=== PATIENT | female | born 1990 | race Caucasian/White ===

== ENCOUNTER → 2020-12-25 09:48 | Outpatient (BNVA) | payer OTHER, SELFPAY | PROVIDERS: Visit Provider Nurse Practitioner Women's Health | DX: N89.8 Other specified noninflammatory disorders of vagina (principal); N93.0 Postcoital and contact bleeding | CPT/HCPCS: 87070; 87205 ==

== ENCOUNTER → 2021-10-22 09:10 | Outpatient (BNVA) | payer OTHER, SELFPAY | PROVIDERS: Visit Provider Nurse Practitioner Women's Health | DX: Z01.419 Encounter for gynecological examination (general) (routine) without abnormal findings (principal) | CPT/HCPCS: 87624 ==

== ENCOUNTER → 2023-06-09 07:45 | Outpatient (BNVA) | payer OTHER, SELFPAY | PROVIDERS: Visit Provider Nurse Practitioner Women's Health | DX: N93.0 Postcoital and contact bleeding (principal); R93.89 Abnormal findings on diagnostic imaging of other specified body structures | CPT/HCPCS: 76830 ==

== ENCOUNTER → 2023-09-22 11:30 | Outpatient (BNVA) | payer OTHER, SELFPAY | PROVIDERS: Visit Provider Nurse Practitioner Women's Health | DX: Z01.419 Encounter for gynecological examination (general) (routine) without abnormal findings (principal) | CPT/HCPCS: 87624 ==

== ENCOUNTER 2023-10-10 16:01 | Emergency (ER) | payer OTHER, SELFPAY ==
[2023-10-10 16:01] VITALS: BP 117/83; PULSE 90; RESP 16; TEMP 37.1; O2SAT 96; BMI 22.1
--- NOTE | 2023-10-10 16:07 | ED_ITS ---
HPI - Seizure 2 General: Chief Complaint: Seizure Stated Complaint: SEIZURES Time Seen by Provider: 10/10/23 16:01 History of Present Illness: HPI Narrative: 33-year-old female who presents the [facility] room with a new onset of seizure- like activity. She says she had her first episode yesterday while she was up near [place]. She was evaluated in the hospital there. She has had multiple episodes today. EMS says she arched her back and shook all over. She says she does not drink. She does not take benzodiazepines regularly. She says she has had some stress recently. She says she can remember the event. No postictal state. says she can talk while it is happening. She says initially she felt strange feeling in her mouth. In shortly after developed tonic-clonic type activity with stiffening of her back. Review of Systems 2 Narrative: Constitutional symptoms: Negative except as documented in HPI. Skin symptoms: Negative except as documented in HPI. Eye symptoms: Negative except as documented in HPI. ENMT symptoms: Negative except as documented in HPI. Respiratory symptoms: Negative except as documented in HPI. Cardiovascular symptoms: Negative except as documented in HPI. Gastrointestinal symptoms: Negative except as documented in HPI. Genitourinary symptoms: Negative except as documented in HPI. Musculoskeletal symptoms: Negative except as documented in HPI. Neurologic symptoms: Negative except as documented in HPI. Psychiatric symptoms: Negative except as documented in HPI. Endocrine symptoms: Negative except as documented in HPI. PFSH ED 2 PFSH: Medical History (Updated 10/10/23 @ 17:04 by Gabriela Piper MD) No pertinent past medical history neghx: htn,dm,thyroid,dvt/pe PCP: Dr. Pillo Rodriguez Surgical History H/O oral surgery (~2005) Family History Mother Hypertension Diabetes Father Hypertension Family/Other Heart disease Maternal great uncle Denies family history of Colon cancer Ovarian cancer Hyperlipidemia Breast cancer Uterine cancer Thyroid disease Stroke Physical Exam 2 Narrative: EXAM NARRATIVE: General: Alert, no acute distress. Skin: Warm, dry. Head: Normocephalic, atraumatic. Neck: Supple, trachea midline. Eye: Extraocular movements are intact. Ears, nose, mouth and throat: mucosa moist. Cardiovascular: Regular, Normal peripheral perfusion. Respiratory: Lungs are clear to auscultation, respirations are non-labored, breath sounds are equal, Symmetrical chest wall expansion. Gastrointestinal: Soft, Nontender, Non distended, Normal bowel sounds. Musculoskeletal: Normal ROM, no deformity. Neurological: Alert and oriented, No focal neurological deficit observed. Psychiatric: Cooperative, appropriate mood & affect. Course 2 Vital Signs: Vital signs: Vital Signs Temperature 98.7 F 10/10/23 16:01 Pulse Rate 90 10/10/23 16:01 Respiratory Rate 16 10/10/23 16:01 Blood Pressure 117/83 10/10/23 16:01 Pulse Oximetry 96 10/10/23 16:01 Oxygen Delivery Me thod Room Air 10/10/23 16:01 MDM - Seizure MDM Narrative Medical decision making narrative: Medical decision making: Differential diagnosis including but not limited to and based on the above HPI, review of systems and physical exam: Patient with new onset seizures. She had a CT yesterday so likely no large tumor or anything like that. Today we will ordering basic lab work and a lactic acid. Lab Review: Laboratory results were reviewed and interpreted by myself the emergency room physician. Patient does have a lactate of around 4. This indicates she may have had some sort of true seizure activity. Reexamination: Patient remained stable. No further seizure activity while here. They plan on seeing her primary care physician tomorrow. I recommend neurology evaluation. Given her elevated lactate and recurrent seizures I am going to start her on Keppra for now. Neurology can adjust or change or stop this. Lab Data 10/10/23 Unknown 10/10/23 Unknown Labs: Laboratory Results WBC 7.28 10^3/uL (3.29-11.43) 10/10/23 Unknown RBC 5.02 10^6/uL (3.85-5.65) 10/10/23 Unknown Hgb 14.30 g/dL (11.27-16.99) 10/10/23 Unknown Hct 42.3 % (36-47) 10/10/23 Unknown MCV 84.3 fl (85-98) L 10/10/23 Unknown MCH 28.5 pg (27-33) 10/10/23 Unknown MCHC 33.8 g/dL (30-55) 10/10/23 Unknown RDW 13.8 % (12.1-15.1) 10/10/23 Unknown Plt Count 202 10^3/cmm (157-399) 10/10/23 Unknown MPV 12.3 fL (7.4-10.4) H 10/10/23 Unknown Neut % (Auto) 60.0 % 10/10/23 Unknown Lymph % (Auto) 30.6 % 10/10/23 Unknown Harlan % (Auto) 5.5 % 10/10/23 Unknown Eos % (Auto) 2.7 % 10/10/23 Unknown Baso % (Auto) 0.8 % 10/10/23 Unknown Neut # (Auto) 4.36 10^3/uL (1.8-7.7) 10/10/23 Unknown Lymph # (Auto) 2.2 10^3/uL (0.8-4.8) 10/10/23 Unknown Harlan # (Auto) 0.4 10^3/uL (0.2-0.9) 10/10/23 Unknown Eos # (Auto) 0.2 10^3/uL (0.0-0.8) 10/10/23 Unknown Baso # (Auto) 0.1 10^3/uL (0.0-0.1) 10/10/23 Unknown Nucleated RBC % (auto) 0 % 10/10/23 Unknown Nucleated RBCs # 0.0 /100WBC 10/10/23 Unknown Sodium 140 mmol/L (136-145) 10/10/23 Unknown Potassium 4.0 mmol/L (3.5-5.1) 10/10/23 Unknown Chloride 104 mmol/L (98-107) 10/10/23 Unknown Carbon Dioxide 19 mmol/L (22-29) L 10/10/23 Unknown Anion Gap 21.0 (5-19) H 10/10/23 Unknown BUN 6 mg/dL (6-20) 10/10/23 Unknown Creatinine 0.6 mg/dL (0.5-0.9) 10/10/23 Unknown GFR Calculation 113.8 mL/min (90-130) 10/10/23 Unknown Glucose 118 mg/dL (65-115) H 10/10/23 Unknown Calculated Osmolality 289 mOsm/kg (285-295) 10/10/23 Unknown Lactic Acid 4.4 mmol/L (0.5-2.2) H* 10/10/23 Unknown Calcium 9.4 mg/dL (8.5-10.5) 10/10/23 Unknown Total Bilirubin 0.2 mg/dL (0.15-1.2) 10/10/23 Unknown AST 19 U/L (0-32) 10/10/23 Unknown ALT 16 U/L (0-33) 10/10/23 Unknown Alkaline Phosphatase 71 U/L (35-105) 10/10/23 Unknown Total Protein 7.8 g/dL (6.6-8.7) 10/10/23 Unknown Albumin 4.5 g/dL (3.5-5.2) 10/10/23 Unknown Globulin 3.3 g/dL (1.3-4.6) 10/10/23 Unknown Amorphous Sediment Not Reportable 10/10/23 16:47 No radiology studies performed this visit Other Data Other Data: Assessment and plan: Seizure-like activity -IV Keppra in the emergency room. -Discussed at length with her and her that this is atypical for true seizure but given her elevated lactate and the recurrence of her symptoms I am going to place her on Keppra for now until she can be seen by a neurologist and/or her primary care physician provider. She is not in status over the feel she needs sent to another hospital with neurology emergently. There is no neurology on-call for the hospital here today. - Discharged home - Discussed findings and plan with patient. Answered any questions. - All laboratory values were reviewed and interpreted personally by myself, the ER physician - Evaluation and treatment of this problem were appropriate in the emergency setting Discharge Plan Discharge Patient Disposition: Home Clinical Impression: Seizure-like activity Condition: Stable Prescriptions: New Keppra 500 mg tablet 500 mg PO Q12H Qty: 60 0RF No Action multivitamin Tablet 1 tab PO DAILY acetaminophen [Tylenol] 325 mg capsule 325 mg PO QID PRN Discharge Orders: Discharge ED (Routine); Ordered 10/10/23 Ordered By: Gabriela Piper Patient Instructions: Opioid Safety, Pain Management Activity Restrictions/Additional Instructions: No driving until cleared by neurologist or your primary care provider. You have been screened and evaluated and felt safe for discharge. Health conditions do change or evolve sometimes and as such it is important that you follow up with your Primary Doctor to be re checked, 3-5 days is a general good time frame for follow up. You are always welcome to return to the ED for re assessment if your symptoms are worsening or you have new concerns Coding Level of Care Code ED Eligibility Examiner for Jessica Toro
[2023-10-10 16:19] LABS: Basophils # 0.1 10^3/uL (0.0-0.1); Basophils % 0.8 %; Eosinophils # 0.2 10^3/uL (0.0-0.8); Eosinophils % 2.7 %; Hematocrit 42.3 % (36-47); Lymphocytes # 2.2 10^3/uL (0.8-4.8); Lymphocytes % 30.6 %; Mean Corpuscular HGB Conc 33.8 g/dL (30-55); Mean Corpuscular Hemoglobin 28.5 pg (27-33); Mean Corpuscular Volume 84.3 fl (85-98); Mean Platelet Volume 12.3 fL (7.4-10.4); Monocytes # 0.4 10^3/uL (0.2-0.9); Monocytes % 5.5 %; Neutrophils # 4.36 10^3/uL (1.8-7.7); Nucleated Red Blood Cells % 0 %; Platelet Count 202 10^3/cmm (157-399); Red Blood Count 5.02 10^6/uL (3.85-5.65); Red Cell Distribution Width 13.8 % (12.1-15.1); White Blood Count 7.28 10^3/uL (3.29-11.43)
[2023-10-10 16:42] LABS: Alanine Aminotransferase 16 U/L (0-33); Albumin Level 4.5 g/dL (3.5-5.2); Alkaline Phosphatase 71 U/L (35-105); Aspartate Amino Transferase 19 U/L (0-32); Blood Urea Nitrogen 6 mg/dL (6-20); Calcium 9.4 mg/dL (8.5-10.5); Carbon Dioxide 19 mmol/L (22-29); Chloride 104 mmol/L (98-107); Creatinine Clr Calc Pharmacy 116.1597; Globulin 3.3 g/dL (1.3-4.6); Glomerular Filtration Rate 113.8 mL/min (90-130); Glucose 118 mg/dL (65-115); Osmolality Calculated 289 mOsm/kg (285-295); Sodium 140 mmol/L (136-145); Total Bilirubin 0.2 mg/dL (0.15-1.2); Total Protein 7.8 g/dL (6.6-8.7)
[2023-10-10 16:44] LABS: Lactic Sepsis W/Reflex 4.4 mmol/L (0.5-2.2)
[2023-10-10] MEDS: levETIRAcetam 1,000 MG/100 ML PREMIX 400 MG IV (17:09)
[2023-10-10 17:10] LABS: Glucose Urine UA Norm (Normal); Ketones Urine Negative (Negative); Protein Urine Neg (Negative); Specific Gravity, Urine 1.005 (1.005-1.030); Urine Appearance Clear (CLEAR); Urine Color Colorless (Yellow); pH Urine 7 (5-7)
[2023-10-10 17:11] LABS: Add Urine Culture? No; Bacteria Urine TRACE /hpf; Bilirubin Urine Neg (Negative); Blood Urine Neg (Negative); Leukocyte Esterase Urine Negative (Negative); Nitrate Urine Negative (Negative); Urobilinogen Urine Norm (Negative)
[2023-10-10 18:01] VITALS: BP 116/82; PULSE 86; RESP 14; TEMP 37.1; O2SAT 97
--- NOTE | 2023-10-10 18:02 | PC.NURSE ---
pt discharge delayed due to waiting for ride to return.
[2023-10-10 18:03] LABS: Reflex Lactate Order REFLEX LACTIC ORDERD
== END 2023-10-10 18:16 | disposition home or self-care (01) ==
PROVIDERS: Emergency Provider Emergency Medicine
DX: R56.9 Unspecified convulsions (principal)
CPT/HCPCS: 80053; 81001; 83605; 85025; 96374; 99285; J1953

== ENCOUNTER 2023-10-11 14:07 | Observation (INO) | payer OTHER, SELFPAY ==
[2023-10-11 14:12] VITALS: BP 147/82; PULSE 130; RESP 20; TEMP 37; O2SAT 98
--- NOTE | 2023-10-11 14:14 | MRR_ITS ---
PROCEDURE INFORMATION: Exam: MR Head Without Contrast Exam date and time: 10/11/2023 3:57 PM Age: 33 years old Clinical indication: Patient HX: New onset seizures TECHNIQUE: Imaging protocol: Magnetic resonance imaging of the head without contrast. COMPARISON: CT angio headneck* [id number] 10/11/2023 3:21 PM FINDINGS: Brain: No acute infarct. No hemorrhage. No significant white matter disease. Cerebral ventricles: No ventriculomegaly. Bones/joints: Unremarkable. Paranasal sinuses: No acute sinusitis. Mastoid air cells: No mastoid effusion. Orbital cavities: Unremarkable. Soft tissues: Unremarkable. MR/MR head wo con* [id number] IMPRESSION: No acute intracranial findings.
[2023-10-11 14:22] LABS: Basophils # 0.1 10^3/uL (0.0-0.1); Basophils % 0.7 %; Eosinophils # 0.2 10^3/uL (0.0-0.8); Eosinophils % 2.8 %; Hematocrit 44.4 % (36-47); Lymphocytes % 28.5 %; Mean Corpuscular HGB Conc 33.3 g/dL (30-55); Mean Corpuscular Hemoglobin 28.1 pg (27-33); Mean Corpuscular Volume 84.4 fl (85-98); Mean Platelet Volume 11.4 fL (7.4-10.4); Monocytes # 0.4 10^3/uL (0.2-0.9); Monocytes % 5.8 %; Neutrophils # 4.38 10^3/uL (1.8-7.7); Neutrophils % 61.9 %; Nucleated Red Blood Cells % 0 %; Platelet Count 203 10^3/cmm (157-399); Red Blood Count 5.26 10^6/uL (3.85-5.65); Red Cell Distribution Width 13.5 % (12.1-15.1); White Blood Count 7.08 10^3/uL (3.29-11.43)
--- NOTE | 2023-10-11 14:26 | CTR_ITS ---
PROCEDURE INFORMATION: Exam: CT Chest With Contrast; Diagnostic Exam date and time: 10/11/2023 3:27 PM Age: 33 years old Clinical indication: Other: Seizure; Additional info: Abdominal pain, traumatic chest pain TECHNIQUE: Imaging protocol: Diagnostic computed tomography of the chest with contrast. Radiation optimization: All CT scans at this facility use at least one of these dose optimization techniques: automated exposure control; mA and/or kV adjustment per patient size (includes targeted exams where dose is matched to clinical indication); or iterative reconstruction. Contrast material: OMNI 350; Contrast volume: 50 ml; Contrast route: INTRAVENOUS (IV); COMPARISON: CT angio headneck* [id number] 10/11/2023 3:21 PM RADIATION DOSE METRICS: Total DLP (mGy-cm): 616.01 FINDINGS: Lungs: No focal consolidation. Pleural spaces: No pneumothorax or pleural effusion. Heart: No pericardial effusion. Lymph nodes: No enlarged lymph nodes. Vasculature: No aortic aneurysm. Bones/joints: No acute findings Soft tissues: No acute findings. PROCEDURE INFORMATION: Exam: CT Abdomen And Pelvis With Contrast Exam date and time: 10/11/2023 3:27 PM Age: 33 years old Clinical indication: Other: Seizure; Additional info: Abdominal pain, traumatic chest pain TECHNIQUE: Imaging protocol: Computed tomography of the abdomen and pelvis with contrast. Radiation optimization: All CT scans at this facility use at least one of these dose optimization techniques: automated exposure control; mA and/or kV adjustment per patient size (includes targeted exams where dose is matched to clinical indication); or iterative reconstruction. Contrast material: OMNI 350; Contrast volume: 50 ml; Contrast route: INTRAVENOUS (IV); COMPARISON: US transvaginal [id number] 06/09/2023 7:52 AM RADIATION DOSE METRICS: Total DLP (mGy-cm): 616.01 FINDINGS: Liver: No acute findings Gallbladder and bile ducts: No acute findings. Pancreas: No ductal dilation. Spleen: No splenomegaly. Adrenal glands: No mass. Kidneys and ureters: No stones or hydronephrosis. Stomach and bowel: No obstruction. Appendix: No evidence of appendicitis. Intraperitoneal space: No free air. No significant fluid collection. Vasculature: No abdominal aortic aneurysm. Lymph nodes: No enlarged lymph nodes. Urinary bladder: No acute findings. Reproductive: Multiple left-sided ovarian cysts/follicles. Bones/joints: No acute findings. Soft tissues: No acute findings. CT/CT chest abdpel w/*[id number] IMPRESSION: No acute findings. IMPRESSION: No acute findings.
--- NOTE | 2023-10-11 14:27 | CTR_ITS ---
PROCEDURE INFORMATION: Exam: CTA Head Without And With Contrast, Arteriography Exam date and time: 10/11/2023 3:21 PM Age: 33 years old Clinical indication: Numbness and other: Seizure; Additional info: Seizures TECHNIQUE: Imaging protocol: Computed tomographic angiography of the head without and with contrast. Exam focused on the arteries. 3D rendering (Not supervised by radiologist): MIP and/or 3D reconstructed images were created by the technologist. Radiation optimization: All CT scans at this facility use at least one of these dose optimization techniques: automated exposure control; mA and/or kV adjustment per patient size (includes targeted exams where dose is matched to clinical indication); or iterative reconstruction. Contrast material: OMNI 350; Contrast volume: 70 ml; Contrast route: INTRAVENOUS (IV); COMPARISON: No relevant prior studies available. RADIATION DOSE METRICS: Total DLP (mGy-cm): 945.26 FINDINGS: ANTERIOR CIRCULATION: Right internal carotid artery: There is a subtle focal peripheral hypodensity in the proximal cavernous portion of the right internal carotid artery visible on axial series 8, image 210. There is less than 50% stenosis. The right internal carotid artery is otherwise normal. Right middle cerebral artery: No occlusion or significant stenosis. No aneurysm. Right anterior cerebral artery: No occlusion or significant stenosis. No aneurysm. Left internal carotid artery: Intracranial segment is patent with no significant stenosis. No aneurysm. Left middle cerebral artery: No occlusion or significant stenosis. No aneurysm. Left anterior cerebral artery: No occlusion or significant stenosis. No aneurysm. POSTERIOR CIRCULATION: Right vertebral artery: No occlusion or significant stenosis. No aneurysm. Left vertebral artery: No occlusion or significant stenosis. No aneurysm. Basilar artery: No occlusion or significant stenosis. No aneurysm. Right posterior cerebral artery: No occlusion or significant stenosis. No aneurysm. Left posterior cerebral artery: No occlusion or significant stenosis. No aneurysm. Veins: Dural venous sinuses are patent. HEAD: Brain: The brain is unremarkable. There is no mass effect or significant white matter disease. There is no acute intracranial hemorrhage. No pathologic enhancement of the brain parenchyma. Cerebral ventricles: There is no significant ventricular dilation. The basal cisterns are unremarkable. Bones/joints: The calvarium is intact. Paranasal sinuses: Diffuse mucosal thickening in the maxillary sinuses bilaterally. Mucosal thickening in left sphenoid sinus. There is no fluid in the paranasal sinuses to suggest acute sinusitis. Mastoid air cells: The mastoid air cells are clear. Soft tissues: The visible extracranial soft tissues are unremarkable. PROCEDURE INFORMATION: Exam: CTA Neck With Contrast Exam date and time: 10/11/2023 3:21 PM Age: 33 years old Clinical indication: Numbness and other: Seizure; Additional info: Seizures TECHNIQUE: Imaging protocol: Computed tomographic angiography of the neck with contrast. Exam focused on the cervical segments of the vasculature. 3D rendering (Not supervised by radiologist): MIP and/or 3D reconstructed images were created by the technologist. Radiation optimization: All CT scans at this facility use at least one of these dose optimization techniques: automated exposure control; mA and/or kV adjustment per patient size (includes targeted exams where dose is matched to clinical indication); or iterative reconstruction. Contrast material: OMNI 350; Contrast volume: 70 ml; Contrast route: INTRAVENOUS (IV); COMPARISON: No relevant prior studies available. RADIATION DOSE METRICS: Total DLP (mGy-cm): 945.26 FINDINGS: Right common carotid artery: No stenosis. No dissection or occlusion. Right internal carotid artery: No stenosis of the extracranial segment. No dissection or occlusion. Right external carotid artery: No occlusion or stenosis of the origin. Left common carotid artery: No stenosis. No dissection or occlusion. Left internal carotid artery: No stenosis of the extracranial segment. No dissection or occlusion. Left external carotid artery: No occlusion or stenosis of the origin. Right vertebral artery: No stenosis. No dissection or occlusion. Left vertebral artery: No stenosis. No dissection or occlusion. Soft tissues: Soft tissues in the neck and thoracic inlet are unremarkable. Bones/joints: Bones are unremarkable. Lungs: Lung apices are clear. CT/CT angio headneck* [id number] IMPRESSION: 1. Subtle abnormality in the proximal cavernous portion of the right internal carotid artery described above. This finding most likely represents beam hardening artifact. Noncalcified plaque and focal mural thrombus could have a similar appearance. 2. No cerebral arterial occlusion or stenosis. IMPRESSION: No arterial stenosis, occlusion or dissection. REFERENCES: NASCET CRITERIA. The degree of stenosis in the cervical segment of the internal carotid artery is based on NASCET criteria. Normal is no stenosis. Mild is less than 50% stenosis. Moderate is 50-69% stenosis. Severe is 70% to 99% stenosis. Total occlusion is no detectable patent lumen.
--- NOTE | 2023-10-11 14:33 | ED_ITS ---
HPI - Seizure 2 General: Chief Complaint: Seizure Stated Complaint: SEIZURE Time Seen by Provider: 10/11/23 14:12 History of Present Illness: HPI Narrative: This is a 33-year-old female who I saw in the emergency room yesterday for seizure-like activity. She has never had any seizure-like activity. No history of migraines. Really no medical problems at all. First episode of this was on Wednesday while at an event with the family and [place]. She was seen in emergency room then and a workup was negative. CT head was normal. Lab work was normal other than she had marijuana in her urine. I saw her yesterday and because she had been having more of these events. They are not typical for seizure. First she seems to be able to communicate during them at times. Second she does not have any postictal state. However yesterday it was a bit worrisome because she had a elevation in her lactate. We are planning on outpatient workup and a possible outpatient EEG. However she continued to have the episodes again today so they brought her back to the emergency room. Family seems to think this is somehow associated with eating. She complains of a headache after these events. Unclear if she has had any abdominal pain while it is going on. She has had no fever. No cough. She has no altered mental status once this is over. Review of Systems 2 Narrative: Constitutional symptoms: Negative except as documented in HPI. Skin symptoms: Negative except as documented in HPI. Eye symptoms: Negative except as documented in HPI. ENMT symptoms: Negative except as documented in HPI. Respiratory symptoms: Negative except as documented in HPI. Cardiovascular symptoms: Negative except as documented in HPI. Gastrointestinal symptoms: Negative except as documented in HPI. Genitourinary symptoms: Negative except as documented in HPI. Musculoskeletal symptoms: Negative except as documented in HPI. Neurologic symptoms: Negative except as documented in HPI. Psychiatric symptoms: Negative except as documented in HPI. Endocrine symptoms: Negative except as documented in HPI. PFSH ED 2 PFSH: Medical History (Updated 10/11/23 @ 17:26 by Gabriela Piper MD) No pertinent past medical history neghx: htn,dm,thyroid,dvt/pe PCP: Dr. Pillo Rodriguez Surgical History H/O oral surgery (~2005) Family History Mother Hypertension Diabetes Father Hypertension Family/Other Heart disease Maternal great uncle Denies family history of Colon cancer Ovarian cancer Hyperlipidemia Breast cancer Uterine cancer Thyroid disease Stroke Physical Exam 2 Narrative: EXAM NARRATIVE: General: Today on presentation she is having seizure-like activity when I come in the room. However this is not typical for a tonic-clonic seizure and she will come out of the events with some prompting. She is not postictal afterwards. Skin: Warm, dry. Head: Normocephalic, atraumatic. Neck: Supple, trachea midline. Eye: Extraocular movements are intact. Ears, nose, mouth and throat: mucosa moist. Cardiovascular: Regular, Normal peripheral perfusion. Respiratory: Lungs are clear to auscultation, respirations are non-labored, breath sounds are equal, Symmetrical chest wall expansion. Gastrointestinal: Soft, Nontender, Non distended, Normal bowel sounds. Musculoskeletal: Normal ROM, no deformity. Neurological: Alert and oriented, No focal neurological deficit observed. Psychiatric: Cooperative Course 2 Vital Signs: Vital signs: Vital Signs Temperature 98.6 F 10/11/23 14:12 Pulse Rate 87 10/11/23 15:45 Respiratory Rate 16 10/11/23 15:45 Blood Pressure 131/83 10/11/23 15:45 Pulse Oximetry 97 10/11/23 15:45 Oxygen Delivery Me thod Room Air 10/11/23 15:45 MDM - Seizure MDM Narrative Medical decision making narrative: Medical decision making: Differential diagnosis including but not limited to and based on the above HPI, review of systems and physical exam: Definitely concern for seizure but seems quite atypical. She had a CT of her head done to rule out any major abnormalities. After consultation with neurology is determined that we will order a CTA of her head and neck. An MRI without contrast. Also to evaluate for any kind of abdominal issues or chest issues that might be causing pain and causing these events we are ordering a CT of the chest abdomen and pelvis. Basic lab work and a ABG and lactate were ordered today as well. Orders placed to evaluate differential diagnosis based on the above differential, HPI and physical exam Lab Review: Laboratory results were reviewed and interpreted by myself the emergency room physician. Lab work is unremarkable again today. Lactic acid is normal today despite numerous episodes of seizure-like activity. MRI of the brain: No acute intracranial process. no intracranial hemorrhage, no evidence of infarct. no evidence of acute fracture.This was reviewed and interpreted by myself the ER physician. CTA of the head and neck: No acute process. Vasculature appears normal. There is a small amount of an upper defect in 1 internal carotid artery but this is likely artifact. And should have no bearing on this situation as that her MRI is normal so she has not had any sort of stroke. No mass. CT of the chest abdomen pelvis: No acute process in the chest. No pneumothorax. No pneumonias. Abdomen is normal as well. No bowel abnormalities. No appendicitis. No gallstones. No cholecystitis. These films were all reviewed and interpreted by myself. I also reviewed the radiology reports. Consultation: Dr. Calderón the neurologist has evaluated the patient and recommends the workup that was done above. Along with an EEG as an outpatient. Reexamination: Patient has had several episodes of seizure-like behavior. This seems to be nonepileptic. She has been examined by the neurologist who agrees with this. He has witnessed the events. He is arranging for an outpatient EEG to complete this workup. Lab Data 10/11/23 14:10 10/11/23 14:10 Labs: Radiology Impressions Head MRI 10/11/23 14:14 IMPRESSION: No acute intracranial findings. Chest/Abdomen/Pelvis CT 10/11/23 14:26 IMPRESSION: No acute findings. IMPRESSION: No acute findings. Head/Neck CTA 10/11/23 14:27 IMPRESSION: 1. Subtle abnormality in the proximal cavernous portion of the right internal carotid artery described above. This finding most likely represents beam hardening artifact. Noncalcified plaque and focal mural thrombus could have a similar appearance. 2. No cerebral arterial occlusion or stenosis. IMPRESSION: No arterial stenosis, occlusion or dissection. REFERENCES: NASCET CRITERIA. The degree of stenosis in the cervical segment of the internal carotid artery is based on NASCET criteria. Normal is no stenosis. Mild is less than 50% stenosis. Moderate is 50-69% stenosis. Severe is 70% to 99% stenosis. Total occlusion is no detectable patent lumen. ADDENDUM: 10/11/23 0337 THIS REPORT CONTAINS FINDINGS THAT MAY BE CRITICAL TO PATIENT CARE. The findings and recommendations were verbally communicated by me via telephone conference with GABRIELA PIPER at 4:42 PM CDT on 10/11/2023. The findings were acknowledged and understood. Laboratory Results WBC 7.08 10^3/uL (3.29-11.43) 10/11/23 14:10 RBC 5.26 10^6/uL (3.85-5.65) 10/11/23 14:10 Hgb 14.80 g/dL (11.27-16.99) 10/11/23 14:10 Hct 44.4 % (36-47) 10/11/23 14:10 MCV 84.4 fl (85-98) L 10/11/23 14:10 MCH 28.1 pg (27-33) 10/11/23 14:10 MCHC 33.3 g/dL (30-55) 10/11/23 14:10 RDW 13.5 % (12.1-15.1) 10/11/23 14:10 Plt Count 203 10^3/cmm (157-399) 10/11/23 14:10 MPV 11.4 fL (7.4-10.4) H 10/11/23 14:10 Neut % (Auto) 61.9 % 10/11/23 14:10 Lymph % (Auto) 28.5 % 10/11/23 14:10 [place] % (Auto) 5.8 % 10/11/23 14:10 Eos % (Auto) 2.8 % 10/11/23 14:10 Baso % (Auto) 0.7 % 10/11/23 14:10 Neut # (Auto) 4.38 10^3/uL (1.8-7.7) 10/11/23 14:10 Lymph # (Auto) 2.0 10^3/uL (0.8-4.8) 10/11/23 14:10 [place] # (Auto) 0.4 10^3/uL (0.2-0.9) 10/11/23 14:10 Eos # (Auto) 0.2 10^3/uL (0.0-0.8) 10/11/23 14:10 Baso # (Auto) 0.1 10^3/uL (0.0-0.1) 10/11/23 14:10 Nucleated RBC % (auto) 0 % 10/11/23 14:10 Nucleated RBCs # 0.0 /100WBC 10/11/23 14:10 Specimen Type Arterial 10/11/23 14:35 Sample Site Radial, right 10/11/23 14:35 ABG pH 7.42 (7.35-7.45) 10/11/23 14:35 ABG pCO2 37.5 mmHg (35-45) 10/11/23 14:35 ABG pO2 92.0 mmHg (80.0-100.0) 10/11/23 14:35 ABG PO2/FiO2 Ratio 0 10/11/23 14:35 ABG HCO3 24.5 mmol/L (22-26) 10/11/23 14:35 ABG O2 Saturation 98.2 10/11/23 14:35 ABG Base Excess 0.3 mmol/L (-2.0-2.0) 10/11/23 14:35 Samy Test Pos 10/11/23 14:35 A-a O2 Gradient 1.5 mmHg (5-10) L 10/11/23 14:35 Hematocrit 43.1 % (37-47) 10/11/23 14:35 Hgb O2 Saturation 96.1 % (95-100) 10/11/23 14:35 Carboxyhemoglobin 1.3 %THgb (0.4-20.1) 10/11/23 14:35 Methemoglobin 0.9 % (0.4-1.5) 10/11/23 14:35 Total Hemoglobin 14.1 g/dL (12-16) 10/11/23 14:35 Sodium 143.0 mmol/L (131-143) 10/11/23 14:35 Potassium 3.6 mmol/L (3.5-5.0) 10/11/23 14:35 Glucose 104.0 mg/dL (70-115) 10/11/23 14:35 Ionized Calcium 1.2 mmol/L (1.1-1.4) 10/11/23 14:35 O2 Delivery Device Room air 10/11/23 14:35 FiO2 21.0 % 10/11/23 14:35 Front Clerk ID [place] 10/11/23 14:35 Sodium 136 mmol/L (136-145) 10/11/23 14:10 Potassium 3.8 mmol/L (3.5-5.1) 10/11/23 14:10 Chloride 101 mmol/L (98-107) 10/11/23 14:10 Carbon Dioxide 23 mmol/L (22-29) 10/11/23 14:10 Anion Gap 15.8 (5-19) 10/11/23 14:10 BUN 6 mg/dL (6-20) 10/11/23 14:10 Creatinine 0.7 mg/dL (0.5-0.9) 10/11/23 14:10 GFR Calculation 95.2 mL/min (90-130) 10/11/23 14:10 Glucose 104 mg/dL (65-115) 10/11/23 14:10 Calculated Osmolality 280 mOsm/kg (285-295) L 10/11/23 14:10 Lactic Acid 2.1 mmol/L (0.5-2.2) 10/11/23 14:10 Calcium 9.6 mg/dL (8.5-10.5) 10/11/23 14:10 All radiology interpretation(s) finalized by discharge Other Data Other Data: Assessment and plan: -I have discussed findings at length with family and with the patient. This seems likely to be some sort of conversion disorder or pseudoseizures as we have ruled out other possible causes at this time, however an EEG still needs to be done. Dr. Calderón will follow with the patient. - Discharged home - Discussed findings and plan with patient. Answered any questions. - All laboratory values were reviewed and interpreted personally by myself, the ER physician - All imaging was reviewed and interpreted personally by myself, the ER physician. - Evaluation and treatment of this problem were appropriate in the emergency setting Discharge Plan Discharge Patient Disposition: Home Clinical Impression: Seizure-like activity Condition: Stable Prescriptions: No Action multivitamin Tablet 1 tab PO DAILY acetaminophen [Tylenol] 325 mg capsule 325 mg PO QID PRN (Reason: Pain) levetiracetam [Keppra] 500 mg tablet 500 mg PO Q12H Qty: 60 0RF Discharge Orders: Discharge ED (Routine); Ordered 10/11/23 Ordered By: Gabriela L Piper Referrals: Pillo Rodriguez MD [Primary Care Provider] - (You have been screened and evaluated and felt safe for discharge. Health conditions do change or evolve sometimes and as such it is important that you follow up with your Primary Doctor to be re checked, 3-5 days is a general good time frame for follow up. You are always welcome to return to the ED for re assessment if your symptoms are worsening or you have new concerns) Osman Calderón MD [Physician] - (Please call for follow-up appointment. Dr. Calderón is arranging for an outpatient EEG.) Discharge Diet: Usual diet Patient Instructions: Opioid Safety, Pain Management Activity Restrictions/Additional Instructions: No driving or operating machinery until cleared by neurologist. 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
[2023-10-11] MEDS: LORazepam 2 mg/mL INJ 10 mL MDV IV ×2 (14:34→15:43)
[2023-10-11 14:40] LABS: Anion Gap 15.8 (5-19); Blood Urea Nitrogen 6 mg/dL (6-20); Calcium 9.6 mg/dL (8.5-10.5); Carbon Dioxide 23 mmol/L (22-29); Chloride 101 mmol/L (98-107); Glomerular Filtration Rate 95.2 mL/min (90-130); Glucose 104 mg/dL (65-115); Lactic Sepsis W/Reflex 2.1 mmol/L (0.5-2.2); Osmolality Calculated 280 mOsm/kg (285-295); Potassium 3.8 mmol/L (3.5-5.1); Sodium 136 mmol/L (136-145)
[2023-10-11 14:47] LABS: ABG PCO2 37.5 mmHg (35-45); ABG PH Result 7.42 (7.35-7.45); Alveolar-Arterial Oxygen Gradi 1.5 mmHg (5-10); Arterial Blood Gas Hematocrit 43.1 % (37-47); Base Excess ABG 0.3 mmol/L (-2.0-2.0); Blood Gas Allen Test Pos; Blood Gas Operator Identificat WALCI; Blood Gas Sample Site Radial, right; Blood Gas Sample Type Arterial; Carboxyhemoglobin 1.3 %THgb (0.4-20.1); HCO3 ABG 24.5 mmol/L (22-26); HGB O2 Sat 96.1 % (95-100); Ionized Calcium Level - ABG 1.2 mmol/L (1.1-1.4); Methemoglobin 0.9 % (0.4-1.5); Oxygen Device ROOM AIR; Oxygen Saturation ABG 98.2; PO2 FiO2 Ratio Arterial Blood 0; Potassium Level - ABG 3.6 mmol/L (3.5-5.0); Total Hemoglobin 14.1 g/dL (12-16)
--- NOTE | 2023-10-11 15:01 | PM.CONSULT ---
Providers/Reason For Consult Consulting Physician/Specialty*: Osman Calderón MD neurology and epilepsy Reason for Consult*: Seizure-like episodes assess for epilepsy versus nonepileptic events Primary Care Provider: Pillo Rodriguez MD History of Present Illness History of Present Illness Vanessa Lynn is a 33 year old female who is a mother of 3 children. The patient was reported to be in her usual state of health until 10/09/2023. At that time the patient was at a family gathering near [place] eating lunch with her family. According to the they catered [place]. After eating the patient stated that she felt funny and was then witnessed to have altered awareness associated with shaking and jerking of all extremities without associated tongue biting or incontinence. The patient was taken to an emergency room near [place] called [facility]. Noncontrast head CT was obtained and reported to be negative and the patient was released. On 10/11/2023 the patient was eating chicken rice soup and was again witnessed to experience altered awareness with shaking and jerking of all extremities. The patient was brought to [facility] emergency department. In the emergency department, I was contacted by the emergency room physician secondary to the patient displaying recurrent shaking and jerking with altered awareness. Patient was also complaining of abdominal pain and a headache. I evaluated the patient and she was observed by me to experience shaking and jerking of all extremities that were out of phase lasting for a few seconds followed by the patient lying quietly. Patient's eyes were closed. The patient experienced 3 episodes witnessed by me personally at the bedside in the emergency department room #11. All of the events occurred were consisting of odd shaking and movements of her limbs first the upper limbs and then the right lower limb and then her entire trunk. The movements were all OUT OF PHASE physiologically and strongly suggestive of pseudoseizures or nonepileptic events. Following the last episode the patient was awake and I informed the patient and her that the clinical events witnessed by me was suggestive of pseudoseizures or nonepileptic events. I inquired if the patient was under any stress and the patient informing that she has issues with her [id number]. According to the patient, this has been very stressful for her and has been ongoing. I informed the emergency room physician to complete the patient's clinical workup consisting of CT angiogram of the head and neck to assess for aneurysm, CT of the chest and abdomen to rule out GI issues and aortic aneurysm and head MRI with and without contrast to assess for any space-occupying lesions. If the tests are unrevealing the patient can be discharged from neurological standpoint. The patient will be scheduled for an outpatient sleep deprived surface EEG recording for 61 minutes. The patient will also be scheduled to see a psychiatrist/psychologist on an outpatient basis. The patient denied being homicidal suicidal. Past medical history: None Drug allergies: Doxycycline which resulted in a rash Current medications: Multivitamin 1 p.o. daily Habits: The patient admits to smoking occasional marijuana Family history: Negative for epilepsy Review of Systems General: Reports: 10 or more systems reviewed and unremarkable except in HPI and below Medications/Allergies Home Medications Medication Instructions Recorded Confirmed Last Taken Type multivitamin 1 tab PO DAILY 12/25/20 10/11/23 10/11/23 History acetaminophen 325 mg capsule 325 mg PO QID PRN Pain 10/20/22 10/11/23 Unknown History (Tylenol) levetiracetam 500 mg tablet 500 mg PO Q12H #60 tabs 10/10/23 10/11/23 10/11/23 Rx (Keppra) Allergies Allergy/AdvReac Type Severity Reaction Status Date / Time doxycycline Allergy Rash Verified 09/22/23 10:28 PFSH Acute PFSH: Medical History (Updated 10/11/23 @ 15:12 by Osman Calderón MD) No pertinent past medical history neghx: htn,dm,thyroid,dvt/pe PCP: Dr. Pillo Rodriguez Surgical History H/O oral surgery (~2005) Family History Mother Hypertension Diabetes Father Hypertension Family/Other Heart disease Maternal great uncle Denies family history of Colon cancer Ovarian cancer Hyperlipidemia Breast cancer Uterine cancer Thyroid disease Stroke Vitals/I&O/Wt Last Vital Signs Temp 98.6 F 10/11/23 14:12 Pulse 130 H 10/11/23 14:12 Resp 20 H 10/11/23 14:12 BP 147/82 10/11/23 14:12 Pulse Ox 98 10/11/23 14:12 Weight last 48 hrs Weight 150 lb Physical Exam Narrative: The patient was witnessed by me to experience 3 seizure-like episodes that were consistent with nonepileptic events/pseudoseizures. The patient is now awake and alert and in no apparent distress. Head normocephalic. Neck supple. Cranial nerves II through XII intact. Pupils equal round and reactive to light and accommodation. Extraocular movements intact. Motor examination grossly nonfocal at 5/5. Throat clear. Lungs clear. Heart regular rhythm with increased rate extremities were negative for clubbing cyanosis or edema. Data 10/11/23 14:10 10/11/23 14:10 A&P Assessment and plan (1) Psychogenic nonepileptic seizure: Impression: 1. Pseudoseizures/nonepileptic events starting 10/09/2023, last episode was 10/11/2023 2. Subjective complaints of abdominal pain 3. Subjective complaints of headache 4. Sinus tachycardia heart rate 130 Plan: 1. Recommend CT angiogram of the head and neck to assess for aneurysm 2. Recommend CT of the chest and abdomen to assess for abdominal aortic aneurysm and GI issues respectively 3. Head MRI with and without contrast to assess for space-occupying lesions 4. Outpatient sleep deprived surface EEG recording for 61 minutes to assess for an underlying seizure disorder although the patient's clinical events witnessed by me personally on 10/11/2023 were strongly suggestive of nonepileptic events/pseudoseizures 5. Seizure/syncope precautions until further notice per state law 6. Recommend patient be referred to psychiatry/psychology for reports of stress. Patient denied being homicidal or suicidal 7. Schedule follow-up in the [facility] neurology clinic after the above has been completed 8. Consider obtaining labs for TSH, free T3, free T4, magnesium, B12, folate, homocysteine, methylmalonic acid and vitamin D if not recently performed (2) Seizure-like activity: Consult Attestations Medical Necessity Statement: The patient was evaluated by neurology for seizure-like episodes Coding Level of Care Code 72492 Diagnoses Psychogenic nonepileptic seizure F44.5 Seizure-like activity R56.9
[2023-10-11] MEDS: iohexol 350 mg/mL 500 mL Btl (per mL) IV ×2 (15:37→15:38)
[2023-10-11 15:45] VITALS: BP 131/83; PULSE 87; RESP 16; O2SAT 97
[2023-10-11 16:08] LABS: Reflex Lactate Order REFLEX LACTIC ORDERD
[2023-10-11 18:01] LABS: Lactic Acid level (Lactate) 1.1 mmol/L (0.5-2.2)
[2023-10-11] MEDS: ondansetron 2 mg/ML SDV 2 mL 8 MG IVP (18:01)
[2023-10-11] MEDS: diphenhydrAMINE 50 mg/mL SDV 1mL 25 MG IVP (18:05)
[2023-10-11] MEDS: prochlorperazine 10 mg/2 mL Inj IVP (18:08)
[2023-10-11 18:30] VITALS: BP 121/72; PULSE 73; O2SAT 97
[2023-10-11 20:55] VITALS: BP 137/83; PULSE 84; RESP 18; TEMP 36.3; O2SAT 99
--- NOTE | 2023-10-11 23:19 | PC.NURSE ---
Pt arrived to [facility] by wheelchair at 1999. ER nurse told this nurse in report that they had given pt 4mg of Ativan in ER, when admitted pt appeared very tired. Pt was able to tell this nurse that she is here because she has been having seizures since yesterday. Pt denies SI/HI/AVH during admission. Pt fell asleep residential through admission assessment. Pt was able to be dressed into [facility] scrubs. Pt is now observed resting in bed quietly with eyes closed. Behavioral monitoring continues
[2023-10-12 06:00] VITALS: BP 97/65; PULSE 82; RESP 16; O2SAT 97
--- NOTE | 2023-10-12 10:54 | PM.SDS ---
Short Stay Summary Providers Date of Admit/Discharge: 10/12/23 Attending Provider: Niko Gautam MD Primary Care Provider: Pillo Rodriguez MD Chief Complaint: SEIZURE HPI History of Present Illness Vanessa Lynn is a 33 year old female admitted to the neuropsychiatric unit for further evaluation and observation after the patient had apparently had a series of 4 days of problems with memory and forgetfulness. She had stated that she had been at a family gathering in [place] with her family. She reports that she had consumed 1 gummy bear with THC and reported that she began to feel flushed and more anxious. She had acknowledged that she had felt funny and had been apparently shaking and jerking all of her extent extremities with no clear evidence of a seizure. The patient was taken to the emergency department in [place] where a CT was obtained was found to be negative with the patient being released from the hospital. The patient had no recollection of this information. She states that she had been been at home home on October 11, 2023 and again began to experience altered awareness with apparent shaking and jerking of her extremities leading to the patient being brought to [facility] where she had again showed unusual odd shaking and movements of her limbs without any clear signs of a classic epileptic event. The patient on evaluation from the neurologist here had reported that the patient's mood movements were out of phase and in accordance with pseudoseizures. The patient was evaluated on the neuropsychiatric unit and stated that she had been having increased stress over the past month associated with her [id number]-wh-dga but states that she had a meeting proximately a month ago that had contributed to her anxiety. Patient had described having problems with managing anxiety but reported no history in the past of panic symptoms. She denied any depression. She had expressed concern that she had a bad reaction to her marijuana. She had denied any prior use of marijuana. The patient denied any history of psychosis nor does she endorse any history of manic symptoms. She reports good energy and concentration reports no previous episodes like this in the past. Inpatient psychiatric history: None Outpatient psychiatric history: Patient had reported no prior history of inpatient or outpatient treatment. Drug and alcohol history: She reports occasional use of alcohol with no history of substance abuse issues. She reported having used recreational marijuana 1 time as stated above. She had previously reported smoking cigarettes but reports no longer smoking for several years. Legal history: None. history: None. Family psychiatric history: Bipolar Disorder in father Medical history: Reported history of tachycardia during the patient's .History of anemia Surgical history: wisdom teeth removal Allergies: doxycycline Medications: keppra 500mg bid. Social Hx: The patient was was raised to Denominational Sabianism by her biological parents. She currently lives in [facility] with her 3 daughters ages 1411 and 5 along with her . 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 She had reported some struggles academically in school she states that she had completed up to the eighth grade and did not her GED. She reports no prior history of sexual physical or emotional abuse. The patient had stated that she had become at 14 and she reported that her parents at the time had wanted to press charges against her current and only and instead they were . Home Meds/Allergies Home Medications and Allergies Home Medications Medication Instructions Recorded Confirmed Type multivitamin 1 tab PO DAILY 12/25/20 10/11/23 History acetaminophen 325 mg capsule 325 mg PO QID PRN Pain 10/20/22 10/11/23 History (Tylenol) Allergies Allergy/AdvReac Type Severity Reaction Status Date / Time doxycycline Allergy Rash Verified 09/22/23 10:28 PFSH Acute PFSH: Medical History (Updated 10/12/23 @ 17:26 by Niko Gautam MD) No pertinent past medical history neghx: htn,dm,thyroid,dvt/pe PCP: Dr. Pillo Rodriguez Surgical History H/O oral surgery (~2005) Family History Mother Hypertension Diabetes Father Hypertension Family/Other Heart disease Maternal great uncle Denies family history of Colon cancer Ovarian cancer Hyperlipidemia Breast cancer Uterine cancer Thyroid disease Stroke Female Reproductive History: Date of last menstrual period: 10/11/23 Vitals/I&O/Wt Last Vital Signs Temp 97.3 F L 10/11/23 20:55 Pulse 82 10/12/23 06:00 Resp 16 10/12/23 06:00 BP 97/65 10/12/23 06:00 Pulse Ox 97 10/12/23 06:00 O2 Del Method Room Air 10/11/23 20:55 Weight last 48 hrs Weight 68.039 kg Physical Exam Psych: OTHER: Casually dressed white female who appeared her stated age. She was alert and oriented to person place time and situation. Her speech was normal in regards to rate rhythm and prosody. Her thought process linear logical and goal-directed. Thought content showed no evidence of active homicidal or suicidal ideation. She did not appear to be responding internal stimuli. Her attention span appeared fair. Her recent and remote memory were intact. Her insight appeared limited. Her judgment appeared adequate. Her impulse control appeared fair. There was no clear evidence of delusional thinking. She denied any auditory visual hallucinations. Hospital Course Hospital Course Patient was admitted for 24 hour observation and showed improvement with a resolution in the presence of atypical nonepileptical events and was discharged. Discharge Summary During the hospitalization, the patient had routine laboratory studies which were within normal limits except for a few outliers.? Additionally, there was a general medical evaluation which was also within normal limits and revealed no new acute processes.? At the time of discharge, lethality was denied and no mood symptoms were reported. Mood and anxiety were well managed.? The patient endorsed a plan to avoid all drugs of abuse and follow up with the aftercare recommendations of the treatment team.? The patient was evaluated and deemed to be absent credible lethality and had achieved the maximum benefit from her brief hospital stay and so was discharged. ? SSS Data Data Completed and Pending: Completed Studies During Hospitalization Category Date Time Status CT chest abdpel w /*[id number] Stat Cat Scan 10/11/23 14:26 Completed CTA head neck [CT angio headneck* 7 [id number]] Stat Cat Scan 10/11/23 14:27 Completed MR head wo con* [id number] Stat MRI 10/11/23 14:14 Completed Diagnoses at Discharge Discharge Diagnosis (1) Psychogenic nonepileptic seizure: Status: Acute (2) Seizure-like activity: Status: Acute (3) Adjustment disorder, unspecified: Status: Acute Discharge Plan Discharge Patient Disposition: Home Condition: Stable Prescriptions: New ondansetron 8 mg tablet,disintegrating 8 mg PO .q6 PRN (Reason: nausea and vomiting) Qty: 14 0RF Continued multivitamin Tablet 1 tab PO DAILY acetaminophen [Tylenol] 325 mg capsule 325 mg PO QID PRN (Reason: Pain) levetiracetam [Keppra] 500 mg tablet 500 mg PO Q12H Qty: 60 0RF Discharge Orders: Discharge Order (Routine); Ordered 10/12/23 Ordered By: Niko Gautam Referrals: [facility] S[facility] Arthur [Other] - 10/28/23 Pillo Rodriguez MD [Primary Care Provider] - (You have been screened and evaluated and felt safe for discharge. Health conditions do change or evolve sometimes and as such it is important that you follow up with your Primary Doctor to be re checked, 3-5 days is a general good time frame for follow up. You are always welcome to return to the ED for re assessment if your symptoms are worsening or you have new concerns) Osman Calderón MD [Physician] - (Please call for follow-up appointment. Dr. Calderón is arranging for an outpatient EEG.) Discharge Diet: Usual diet Discharge Activity: Resume usual activity Patient Instructions: Opioid Safety, Pain Management Activity Restrictions/Additional Instructions: No driving or operating machinery until cleared by neurologist. Patient to have EEG to confirm presence or lack of seizures scheduled with neurology. She was agreeable to remaining on Keppra until that time. Attestations Medical Necessity Statement*: Patient to be discharged today. Time Spent in Patient Care*: greater than 30 min Specific Discharge Activities: Specific discharge activities: educating patient Status at Discharge: Cognitive status at discharge: cognitively intact, Behavioral status at discharge: cooperative, Functional status at discharge: independent ambulation Overall status at discharge: patient is back to baseline Quality Metrics Clinical Quality Measures: [ No reported AMI, CVA or VTE this stay] Coding Level of Care Code Acute Code for Chg Fwd Diagnoses Psychogenic nonepileptic seizure F44.5 Seizure-like activity R56.9 Adjustment disorder, unspecified F43.20
[2023-10-12 14:00] VITALS: BP 107/72; PULSE 91; RESP 16; TEMP 36.6; O2SAT 100
[2023-10-12 17:34] VITALS: BP 107/72; PULSE 91; RESP 16; TEMP 36.6; O2SAT 100
== END 2023-10-12 17:42 | disposition home or self-care (01) ==
LOC: ER 17:26 → NP 19:38
PROVIDERS: Admitting Provider Psychiatry & Neurology Psychiatry; Emergency Provider Emergency Medicine; PCP Family Medicine; Visit Provider Psychiatry & Neurology Psychiatry
DX: F44.5 Conversion disorder with seizures or convulsions (principal); F43.20 Adjustment disorder, unspecified
CPT/HCPCS: 36415; 36600; 70496; 70498; 70551; 71260; 74177; 80048; 80051; 82330; 82805; 83605; 85025; 96374; 96375; 96376; 97165; 99285; G0378; J0780; J1200; J2060; J2405; Q9967

== ENCOUNTER 2023-11-02 07:39 | Outpatient (CLI) | payer OTHER, SELFPAY ==
[2023-11-02 08:35] LABS: Folate Level 14.6 ng/mL (4.8-37.3)
[2023-11-02 08:40] LABS: 25 Hydroxy Vitamin D 27 ng/mL (30-100); Chol HDL Ratio 3.48 mg/dL (0.0-4.40); Cholesterol 181 mg/dL (0-200); HDL Cholesterol 52 mg/dL (60-100); Homocysteine 7.17; LDL Cholesterol Calculated 108 mg/dL (50-129); LDL HDL Ratio 2.08 RATIO (0.00-3.22); Magnesium 2.1 mg/dL (1.7-2.3); Triglycerides 107 mg/dL (0-150); Vitamin B12 317 pg/mL (232-1245)
[2023-11-02 09:19] LABS: T3 Free 3.3 PG/ML (2.0-4.4)
== END 2023-11-02 07:40 | disposition home or self-care (01) ==
LOC: LAB 07:40
PROVIDERS: PCP Family Medicine; Visit Provider Psychiatry & Neurology Neurology
DX: R56.9 Unspecified convulsions (principal); F43.20 Adjustment disorder, unspecified; E53.8 Deficiency of other specified B group vitamins; E55.9 Vitamin D deficiency, unspecified
CPT/HCPCS: 36415; 80061; 82306; 82607; 82746; 83090; 83735; 84439; 84443; 84481

== ENCOUNTER 2023-12-21 10:29 | Outpatient (CLI) | payer OTHER, MEDICAID, SELFPAY ==
--- NOTE | 2023-12-21 11:00 | MR_ITS ---
WS: [email or web address] MRA CAROTID ARTERIES HISTORY: R56.9 - Unspecified convulsions COMPARISON: None available. TECHNIQUE: MRA is performed with intravenous gadolinium. MIP and source images are reviewed. Right: Normal cervical carotid artery. Internal and external and common carotid arteries are normal c aliber. No filling defect. No stenosis. Left: Normal cervical carotid artery. Internal and external and common carotid arteries are normal ca liber. No filling defects or stenosis. Subclavian Arteries: Normal. Vertebral Arteries: Normal. MR/MR angio neck w con* [id number] IMPRESSION: Normal MRI carotid arteries.
--- NOTE | 2023-12-21 11:45 | MR_ITS ---
WS: [email or web address] MRA ANGIOGRAPHY [place] OF [place] HISTORY: R56.9 - Unspecified convulsions COMPARISON: None available. TECHNIQUE: 3-D MR angiography is performed of the [place] of [place]. All images are reviewed including source images. Distal vertebral and basilar arteries are intact with no significant stenosis or plaque. Posterior ce rebral arteries are normal course and caliber. Posterior communicating arteries are both patent. Post erior communicating arteries are small caliber but patent. Intracranial portion of the internal carotid arteries are normal course and caliber. No significant a therosclerosis, stenosis or aneurysm identified. Middle and anterior cerebral arteries are both paten t with no significant disease. Anterior communicating artery is also normal. MR/MR angio head wo con [id number] IMPRESSION: Normal MRA [place] of [place].
== END 2023-12-21 10:30 | disposition home or self-care (01) ==
PROVIDERS: PCP Family Medicine; Visit Provider Psychiatry & Neurology Neurology
DX: F44.5 Conversion disorder with seizures or convulsions (principal)
CPT/HCPCS: 70544; 70548

== ENCOUNTER → 2024-05-19 09:33 | Outpatient (BNVA) | payer OTHER, MEDICAID, SELFPAY | PROVIDERS: PCP Family Medicine; Visit Provider Nurse Practitioner Women's Health | DX: F41.9 Anxiety disorder, unspecified (principal); G62.9 Polyneuropathy, unspecified; N92.0 Excessive and frequent menstruation with regular cycle; N93.0 Postcoital and contact bleeding | CPT/HCPCS: 80053; 82306; 82607; 82746; 84439; 84443; 85025 ==

== ENCOUNTER 2024-06-13 07:48 | Outpatient (CLI) | payer OTHER, MEDICAID, SELFPAY ==
--- NOTE | 2024-06-13 08:00 | US_ITS ---
WS: [email or web address] US transvaginal [id number] HISTORY: N92.0 - Excessive and frequent menstruation with regular ... COMPARISON: 06/09/2023 Uterus: 10.1 cm x 6.6 cm x 4.9 cm. Uterus is mildly enlarged and anteverted. No fibroid or mass identified. Endometrium: 0.6 cm. Normal. No separate endometrial cystic areas or glands. Small nabothian cysts. Right ovary: 2.1 cm x 1.2 cm x 1.5 cm. Normal size and vascularity, no cystic or solid masses. Left ovary: LEFT ovary is not visualized. No adnexal masses. No free fluid in the cul-de-sac. US/US transvaginal [id number] IMPRESSION: 1. Normal endometrium. Heterogeneity within the endometrium described on 06/09 is no longer present. 2. Mild uterine enlargement. Similar to the prior study of 06/09/2023. 3. LEFT ovary not visualized.
== END 2024-06-13 07:49 | disposition home or self-care (01) ==
LOC: RAD 07:49
PROVIDERS: PCP Family Medicine; Visit Provider Nurse Practitioner Women's Health
DX: N92.0 Excessive and frequent menstruation with regular cycle (principal); N93.0 Postcoital and contact bleeding
CPT/HCPCS: 76830

== ENCOUNTER 2024-08-23 13:22 | Outpatient (CLI) | payer OTHER, MEDICAID, SELFPAY ==
--- NOTE | 2024-08-23 13:25 | XR_ITS ---
WS: [email or web address] Exam: XR KUB [id number] Date/Time of Exam: 08/23/2024 1:26 PM Reason For Exam: R10.9 - Unspecified abdominal pain No bowel obstruction or pneumoperitoneum. No sign of organ enlargement. Bony structures are intact. XR/XR KUB [id number] IMPRESSION: 1. Negative KUB.
== END 2024-08-23 13:23 | disposition home or self-care (01) ==
LOC: RAD 13:25
PROVIDERS: PCP Family Medicine; Visit Provider Nurse Practitioner Women's Health
DX: R10.9 Unspecified abdominal pain (principal); R10.2 Pelvic and perineal pain
CPT/HCPCS: 74018; 84315; 87086

== ENCOUNTER 2024-09-07 07:34 | Outpatient (CLI) | payer OTHER, MEDICAID, SELFPAY ==
--- NOTE | 2024-09-07 07:36 | US_ITS ---
WS: [email or web address] RIGHT UPPER QUADRANT ULTRASOUND HISTORY: RUQ pain COMPARISON: None available. Liver: 12.5 cm in length. Normal size liver and echogenicity. No bile duct dilatation or mass. Portal Vein: Normal hepatopetal flow with monophasic waveform. Gallbladder: Normally distended gallbladder with no stones or wall thickening. CBD: 0.3 cm Pancreas: Normal size and echogenicity. Right kidney: 11.0 cm in length. Normal size and echogenicity. No hydronephrosis or mass. Aorta and IVC: Unremarkable abdominal aorta and IVC. No ascites. US/US abdomen limited [id number] IMPRESSION: Normal right upper quadrant ultrasound.
== END 2024-09-07 07:35 | disposition home or self-care (01) ==
PROVIDERS: PCP Family Medicine; Visit Provider Family Medicine
DX: R10.11 Right upper quadrant pain (principal)
CPT/HCPCS: 76705

== ENCOUNTER 2024-10-10 16:15 | Outpatient (CLI) | payer OTHER, MEDICAID, SELFPAY ==
[2024-10-10 19:31] LABS: Adenovirus Not Detected (NOT DETECT); Chlamydia Pneumoniae Not Detected (NOT DETECT); Coronavirus 229E,HKU1,NL63,OC4 Not Detected (NOT DETECT); Human Metapneumovirus Not Detected (NOT DETECT); Human Rhinovirus/Enterovirus Not Detected (NOT DETECT); Influenza A Not Detected (NOT DETECT); Influenza A H1 Not Detected (NOT DETECT); Influenza A H1-2009 Not Detected (NOT DETECT); Influenza A H3 Not Detected (NOT DETECT); Influenza B Not Detected (NOT DETECT); Mycoplasma Pneumoniae Not Detected (NOT DETECT); Parainfluenza Virus Type 1 Not Detected (NOT DETECT); Parainfluenza Virus Type 2 Not Detected (NOT DETECT); Parainfluenza Virus Type 3 Not Detected (NOT DETECT); Parainfluenza Virus Type 4 Not Detected (NOT DETECT); Respiratory Syncytial Virus A Not Detected (NOT DETECT); Respiratory Syncytial Virus B Not Detected (NOT DETECT); SARS-COV-2 Not Detected (NOT DETECT)
== END 2024-10-10 16:16 | disposition home or self-care (01) ==
LOC: LAB 16:46
PROVIDERS: PCP Family Medicine; Visit Provider Nurse Practitioner Family
DX: J06.9 Acute upper respiratory infection, unspecified (principal)
CPT/HCPCS: 87486; 87581; 87633

== ENCOUNTER 2024-10-11 14:56 | Outpatient (CLI) | payer OTHER, MEDICAID, SELFPAY ==
--- NOTE | 2024-10-11 15:03 | XR_ITS ---
WS: [email or web address] Chest 2 views, 10/11/2024 Clinical Data: ACUTE URI Comparison: None. Findings: No nodules, masses or effusions are seen. The heart is normal. The pulmonary vascularity is not increased. No pneumonia or pneumothorax is seen. XR/XR chest 2V* [id number] Impression: Negative chest.
== END 2024-10-11 14:57 | disposition home or self-care (01) ==
LOC: RAD 14:58
PROVIDERS: PCP Family Medicine; Visit Provider Nurse Practitioner Family
DX: J06.9 Acute upper respiratory infection, unspecified (principal)
CPT/HCPCS: 71046

== ENCOUNTER 2024-12-25 09:46 | Outpatient (CLI) | payer OTHER, MEDICAID, SELFPAY ==
--- NOTE | 2024-12-25 09:56 | XR_ITS ---
WS: [email or web address] XR hand RT min 3V* [id number] REASON FOR EXAM: PAIN OF BILATERAL HANDS FINDINGS: No fracture or focal bone lesion. No periosteal reaction or bone erosion. Joint spaces of the right hand are intact and well preserved. XR/XR hand RT min 3V* [id number] IMPRESSION: No significant bone or joint abnormality.
--- NOTE | 2024-12-25 09:56 | XR_ITS ---
WS: [email or web address] XR foot LT min 3V* [id number] REASON FOR EXAM: PAIN OF BILATERAL FEET FINDINGS: No fracture or focal bone lesion. No periosteal reaction or bone erosion. The joint spaces of the forefoot, midfoot, and hindfoot are intact and well preserved. Small anterior calcaneal enthesophyte. XR/XR foot LT min 3V* [id number] IMPRESSION: Small anterior calcaneal enthesophyte. Otherwise no significant bone or joint abnormality.
--- NOTE | 2024-12-25 09:56 | XR_ITS ---
WS: [email or web address] XR foot RT min 3V* [id number] REASON FOR EXAM: PAIN OF BILATERAL FEET FINDINGS: No fracture or focal bone lesion. No periosteal reaction or bone erosion. The joint spaces of the forefoot, midfoot, and hindfoot are intact and well preserved. Small anterior calcaneal enthesophyte. XR/XR foot RT min 3V* [id number] IMPRESSION: Small calcaneal enthesophyte. Otherwise no significant bone or joint abnormality.
--- NOTE | 2024-12-25 09:56 | XR_ITS ---
WS: [email or web address] XR hand LT min 3V* [id number] REASON FOR EXAM: PAIN OF BILATERAL HANDS FINDINGS: No fracture or focal bone lesion. No periosteal reaction or bone erosion. The joint spaces of the left hand are intact and well preserved. XR/XR hand LT min 3V* [id number] IMPRESSION: No significant bone or joint abnormality.
== END 2024-12-25 09:47 | disposition home or self-care (01) ==
PROVIDERS: PCP Family Medicine; Visit Provider Family Medicine
DX: M77.31 Calcaneal spur, right foot (principal); M77.32 Calcaneal spur, left foot; M79.642 Pain in left hand; M79.641 Pain in right hand; M79.672 Pain in left foot; M79.671 Pain in right foot
CPT/HCPCS: 73130; 73630

== ENCOUNTER → 2025-01-05 11:57 | Outpatient (BNVA) | payer OTHER, MEDICAID, SELFPAY | PROVIDERS: PCP Family Medicine; Visit Provider Nurse Practitioner Women's Health | DX: Z11.3 Encounter for screening for infections with a predominantly sexual mode of transmission (principal) | CPT/HCPCS: 86592; 86803; 87340; 87491; 87591; 87624; 87661; 87806 ==

== ENCOUNTER → 2025-04-23 13:56 | Outpatient (BNVA) | payer MEDICAID, SELFPAY | PROVIDERS: PCP Family Medicine; Visit Provider Specialist | DX: G56.03 Carpal tunnel syndrome, bilateral upper limbs (principal); M06.4 Inflammatory polyarthropathy | CPT/HCPCS: 36415; 73110; 80053; 84550; 85025; 85651; 86140; 86200; 86225; 86235; 86431 ==

== ENCOUNTER → 2025-06-06 16:37 | Outpatient (BNVA) | payer MEDICAID, SELFPAY | PROVIDERS: PCP Family Medicine; Visit Provider Specialist | DX: Z01.818 Encounter for other preprocedural examination (principal) | CPT/HCPCS: 36415; 80053; 81001; 85025 ==

== ENCOUNTER → 2025-06-28 12:02 | Day surgery (SDC) | payer MEDICAID, SELFPAY ==
[2025-06-28] VITALS (13 sets, daily range): BP systolic 112–146; BP diastolic 54–91; PULSE 58–117; RESP 12–17; TEMP 36.2–37.2; O2SAT 97–100; BMI 25.5
[2025-06-28] MEDS: acetaminophen 1,000 MG/100 ML PIGGYBACK 400 MG IV (12:34)
[2025-06-28 14:05] LABS: OR HCG Qualitative Urine Negative (Negative)
--- NOTE | 2025-06-28 14:32 | P.HPUD_ITS ---
Surgery/Procedure H&P Update DATE OF PROCEDURE: June 28, 2025 DATE H&P PERFORMED: 06/06/25 H&P UPDATE INFORMATION: I have reviewed H&P completed within last 30 days, I have examined patient prior to procedure, No changes to prior documentation, H&P is in [facility] EMR on date indicated and Risks and benefits of the procedure reviewed PLANNED PROCEDURE: Operation Date: 06/28/25 13:40 Proposed Procedures p RIGHT Carpal Tunnel Release(Right) - Alicia Truong MD s RIGHT Thumb Trigger Finger Release(Right) - Alicia Truong MD Related Problem List Diagnoses 1. Carpal tunnel syndrome on right: 2. Trigger thumb, right thumb:
[2025-06-28] MEDS: ceFAZolin 2,000 mg SDV 2000 MG IVP (14:57)
[2025-06-28] MEDS: BUPivacaine 0.5% INJ 30 mL XX (15:24)
--- NOTE | 2025-06-28 15:59 | PM.OP ---
Operative Report Date of procedure: June 28, 2025 Pre-op diagnosis: Right carpal tunnel syndrome Right trigger thumb Post-op diagnosis: Right carpal tunnel syndrome Right trigger thumb Post-op findings: Significant inflammation within the tendon of the thumb and significant compression across carpal canal Procedure done: Right carpal tunnel release Right trigger thumb release Implants: None Specimens removed/disposition: None Pathology: None Surgeon: Alicia Truong MD Lawn Care Professional: None Anesthesia: General (Per LMA, ASA 2, without inhalation agents) Estimated blood loss (mL): 3 Tourniquet time (min): 31 (At 250 mmHg) IV fluids (mL): 900 Urine output (mL): 0 (No Manzo) Complications: None Condition: stable Disposition: PACU (Then return to PACU for subsequent discharge to home from same-day surgery) Brief History: This 35-year-old woman presented initially to discuss surgery complaining of bilateral symptoms consistent with carpal tunnel syndrome. She also had significant triggering of the right thumb. Both of the right carpal tunnel and right trigger finger interfere in her activities of daily living. She wished to have both released. After discussion in the office including risks and complications as well as benefits of surgery, the surgery was scheduled for her. Consents were signed and questions were answered. Procedure: The patient was brought to the operating theater. The patient had a general anesthesia per LMA without anesthetic agents, ASA 2. The tourniquet was elevated to 250 mmHg for a total tourniquet time of 31 minutes. The patient was also given Ancef 2 g preoperatively. The arm was then prepped and draped with DuraPrep in usual fashion with the arm draped free. A surgical pause was performed. At the time, the surgical pause, we confirmed the site and side of surgery. We also confirmed the patient's identity, appropriate and timely administration of preoperative antibiotics and preoperative surgical markings including both the carpal tunnel incision and the trigger thumb release.. Attention was initially addressed to the carpal tunnel release, and an incision was made along the thenar crease. The incision crossed the wrist joint in a curvilinear fashion. Dissection continued through skin and soft tissues using a scalpel. The palmaris longus was identified along with the transverse carpal ligament. Each of these was released carefully to avoid injury to the median nerve. We were able to dissect gently into the carpal canal which was noted to be quite tight with significant compression across the median nerve. The nerve was visualized and was an hourglass shape. The canal was subsequently palpated to assure there was no bony encroachment upon the canal. The canal was then palpated distally and proximally to assure that my small finger was passed easily without impingement. Finding this to be so, attention was directed to closure. The wound was irrigated with ropivacaine plain, and this was also injected locally. It was then closed with 3-0 nylon in an interrupted mattress fashion. This was followed by Dermabond and OpSite. Following the carpal tunnel release, an incision was made along the metacarpal phalangeal crease of the thumb. Dissection continued through the skin to the subcutaneous tissues using a scalpel. Blunt dissection was then utilized to spread soft tissues and allow access to the A1 shelly. Each A1 shelly was identified. It was then incised longitudinally and sharply using a knife and scissors. This was accomplished without difficulty and atraumatically. Once the A1 shelly was released, the tendon was brought up out of the wound and evaluated. There were no gross masses on the tendon, and they were returned to their normal position. We then irrigated the wound and subsequently closed it with 3-0 nylon with an interrupted mattress type suture. Following closure of the wound, the wound was irrigated and subsequently injected with ropivacaine into the subcutaneous tissues as a local anesthetic. Sterile dressing was then placed consisting of Dermabond and OpSite. Both wounds were then wrapped in a soft dressing including fluffed fluffs, sterile soft roll, and an Al wrap. Tourniquet was released after 31 minutes. The patient was returned to recovery in satisfactory condition. She will be discharged home to follow-up in the office as scheduled. There were no complications and no specimens. Related Problem List Diagnoses 1. Carpal tunnel syndrome on right: 2. Trigger thumb, right thumb:
--- NOTE | 2025-06-28 17:35 | ANE.PACU2 ---
Inpatient post-anesthesia follow up: Airway intact: Yes Vital signs: Temperature 98.4 F Pulse Rate 91 Respiratory Rate 16 Blood Pressure 146/85 Pulse Oximetry 100 Oxygen Delivery Me thod Room Air Oxygen Flow Rate 6 Fraction of Inspir ed Oxygen Hydration adequate: Yes Nausea and vomiting: No Pain level: 1 Mental status: Baseline
== END | disposition home or self-care (01) ==
PROVIDERS: Anesthesiology; PCP Family Medicine; Visit Provider Specialist
PROC: (CPT 64721; principal; 2025-06-28 13:30)
PROC: (CPT 64721; 2025-06-28 13:30)
DX: G56.01 Carpal tunnel syndrome, right upper limb (principal); M65.311 Trigger thumb, right thumb
CPT/HCPCS: 64721; 26055; 81025; J0131; J0690; J1100; J2250; J2405; J3010; J3490; J7030; J9999